=== PATIENT | male | born 1955 | race African-American/Black ===

== ENCOUNTER 2021-09-16 11:18 | Emergency (ER) | payer OTHER ==
[~2021-09-16] VITALS: Ht 175.3 cm; Wt 99.8 kg
[~2021-09-16 11:18] MED LIST: LISI-716 PO
[2021-09-16 14:03] LABS: Basophils # (auto) 0.1 10 ^3/uL (0-0.2); Eosinophils # (auto) 0.4 10 ^3/uL (0-0.8); Nucleated Red Blood Cells % 0.1 %; Red Cell Distribution Width 14.6 % (11.8-14.3); White Blood Cell 11.7 10^3/uL (4.4-10.8)
[2021-09-16 14:06] LABS: Basophils % (auto) 0.8 % (0.0-2.0); Eosinophils % (auto) 3.4 % (0.0-7.0); Hematocrit 29.9 % (41.0-53.0); Hemoglobin 9.9 g/dL (13.5-17.5); Lymphocytes # (auto) 1.6 10 ^3/uL (0.4-5.4); Lymphocytes % (auto) 13.3 % (10.0-50.0); Mean Corpuscular Hemoglobin 30.1 pg (28.0-32.0); Mean Corpuscular Hgb Conc. 33.2 g/dL (32.0-36.0); Mean Corpuscular Volume 90.6 fL (80.0-100.0); Monocytes # (auto) 1.4 10 ^3/uL (0-1.3); Monocytes % (auto) 11.7 % (0.0-12.0); Neutrophils # (auto) 8.3 10 ^3/uL (1.6-8.6); Neutrophils % (auto) 70.8 % (37.0-80.0)
[2021-09-16 14:18] LABS: Alanine Aminotransferase 47 U/L (16-61); Albumin 2.5 g/dL (3.4-5.0); Anion Gap 7 (5-15); Aspartate Aminotransferase 29 U/L (15-37); BUN/Creatinine Ratio 14.3; Blood Urea Nitrogen 17 mg/dL (7-18); Calcium 8.3 mg/dL (8.5-10.1); Carbon Dioxide 25 mmol/L (21-32); Chloride 111 mmol/L (98-107); GFR African American 78 mL/min; GFR Non-African American 65 mL/min; Glucose 83 mg/dL (74-106); Potassium 4.6 mmol/L (3.5-5.1); Sodium 143 mmol/L (136-145)
[2021-09-16 14:21] LABS: Alkaline Phosphatase 115 U/L (45-117); Bilirubin, Total 0.4 mg/dL (0.2-1.0); Total Protein 6.4 g/dL (6.4-8.2)
[2021-09-16] MEDS ORDERED: LIDOCAINE 2% (LOCAL ANESTH.) PF 5ml SDV ONE (15:43)
[2021-09-16] MEDS ORDERED: LIDOCAINE 1% HCL (LOCAL ANESTH.) INJ 20ML MDV ONE (15:44)
[2021-09-16] MEDS ORDERED: ASPirin 81 mg TAB PO ONE (15:45)
[2021-09-16] MEDS ORDERED: cefTRIAXone SOD 1,000 MG VL IM ONE (15:45)
[2021-09-16 15:48] VITALS: BP 163/87
== END 2021-09-16 15:49 | disposition left against medical advice (07) ==
LOC: ER 11:18
DX: J18.9 Pneumonia, unspecified organism (principal); R77.8 Other specified abnormalities of plasma proteins; D64.9 Anemia, unspecified; I51.7 Cardiomegaly; E78.5 Hyperlipidemia, unspecified; I10 Essential (primary) hypertension; Z20.822 Contact with and (suspected) exposure to COVID-19
CPT/HCPCS: 36415; 71045; 80053; 83880; 84484; 85025; 87426; 93005; 96372; 99284; J0696; J2001